=== PATIENT | female | born 1955 ===

== ENCOUNTER 2024-07-21 05:30 | Day surgery (SDC) | payer OTHER ==
[2024-07-14 08:53] LABS: HEMATOCRIT 34.9 % (36.0-45.00); HEMOGLOBIN 11.8 g/dL (12.0-15.00); MEAN CELL VOLUME 95.3 fL (80.00-100.00); MEAN CORPUSCULAR HEMOGLOBIN 32.2 pg (27.00-32.0); MEAN CORPUSCULAR HGB CONC 33.8 g/dl (32.0-36.0); PLATELET COUNT 258 K/uL (150-450); RED BLOOD COUNT 3.66 M/uL (4.00-6.00); RED CELL DISTRIBUTION WIDTH 13.4 % (11.5-14.5)
[2024-07-14 08:59] LABS: PH,URINE 7.5 (5.0-8.0); URINE APPEARANCE Clear; URINE BILIRRUBIN Negative (NEGATIVE); URINE BLOOD Small; URINE COLOR Yellow; URINE GLUCOSE Negative (NEGATIVE); URINE KETONE Negative (NEGATIVE); URINE LEUKOCYTE Trace; URINE NITRATE Positive; URINE PROTEIN Negative (NEGATIVE)
[2024-07-14 09:02] LABS: URINE BACTERIA 7573.7 uL (0.0-1933); URINE EPITHELIAL CELLS 1.8 uL (0.0-38.8); URINE RBC 77.5 uL (0.0-20.8); URINE WBC 32.4 uL (0.0-23.2)
[2024-07-14 09:19] LABS: INR 0.99; PROTHROMBIN TIME 10.8 SECONDS (9.0-11.5)
[2024-07-14 11:41] LABS: ALBUMIN 3.7 gm/dL (3.4-5.0); CREATININE SERUM 0.83 mg/dL (0.55-1.02); GFR 68.57; PHOSPHOROUS 3.1 mg/dL (2.5-4.9); POTASSIUM 3.85 mEq/L (3.5-5.1)
[~2024-07-21 05:30] MED LIST: LOSARTAN POTAS100 MG
[2024-07-21] MEDS ORDERED: CEFAZOLIN SODIUM 1,000 MG VIAL IV ONE (12:45)
[2024-07-21] MEDS ORDERED: LIDOCAINE HCL 1%/EPINEPHRINE 20ML VIAL IJ ONE (12:45)
[2024-07-21] MEDS ORDERED: EPINEPHRINE HCL/PF 1 MG/ML AMPUL IR ONE (12:45)
[2024-07-21] MEDS ORDERED: CEPHALEXIN500 MG PO (13:05)
[2024-07-21] MEDS ORDERED: CIPROFLOXACIN2.5 ML OTIC (13:05)
== END 2024-07-21 15:45 | disposition home or self-care (01) ==
LOC: CIR.AMB 05:30 → EDBD 07:00 → CIR.AMB 12:30
PROVIDERS: ATTEND Otolaryngology Otology & Neurotology
DX: H72.02 Central perforation of tympanic membrane, left ear (principal); H90.A12 Conductive hearing loss, unilateral, left ear with restricted hearing on the contralateral side; H47.312 Coloboma of optic disc, left eye; Z91.09 Other allergy status, other than to drugs and biological substances